=== PATIENT | female | born 1965 | race Caucasian/White ===

== ENCOUNTER 2025-06-24 13:33 | Inpatient (IN) | payer MEDICAID ==
[~2025-06-24] VITALS: Ht 162.6 cm; Wt 54.4 kg
[2025-06-24 13:34] VITALS: O2SAT 100
[2025-06-24] MEDS: KETOROLAC 15MG/ML VIAL IM ONE (15:16)
[2025-06-24] MEDS: LIDOCAINE HCL 1% 20ML VIAL INL ONE (15:30)
[2025-06-24] MEDS ORDERED: MORPHINE SULFATE 4 MG/ML INJ (FOR IV/IM USE) IV ONE (17:00)
[2025-06-24 17:25] LABS: BASOPHILS % 0.8 % (0.0-2.0); EOSINOPHILS % 2.6 % (0.0-5.0); HEMATOCRIT. 36.8 % (36.0-48.0); HEMOGLOBIN. 12.4 g/dL (12.0-16.0); LYMPHOCYTES % 41.3 % (20.0-50.0); MEAN PLATELET VOLUME 8.7 fl (7.4-10.4); MONOCYTES % 11.8 % (2.0-8.0); NEUTROPHILS % 43.5 % (40.0-76.0); PLATELET 238 x1000/uL (130-400); RED BLOOD CELL COUNT 4.12 mill/uL (4.2-5.4); RED CELL DISTRIBUTION WIDTH 13.0 % (11.6-14.6)
[2025-06-24 17:39] LABS: CREATININE 0.6 mg/dL (0.6-1.0); UREA NITROGEN BLOOD 9 mg/dL (9-23)
[2025-06-24 17:41] LABS: ASPARTATE AMINOTRANSFERASE 82 IU/L (<34); BILIRUBIN DIRECT 0.5 mg/dL (<=3.0); BILIRUBIN TOTAL 1.0 mg/dL (0.1-1.0)
[2025-06-24 17:42] LABS: PROTEIN TOTAL 7.1 g/dL (6.0-8.3)
[2025-06-24] MEDS: ONDANSETRON HCL 4MG/2ML INJ IV ONE (18:56)
[2025-06-24] MEDS: VANCOMYCIN 1G PREMIX 200 ML IV SCH (19:00)
[2025-06-24] MEDS: KETOROLAC 15MG/ML VIAL IV ONE (19:58)
[2025-06-24 22:00] VITALS: BP 129/74; PULSE 62; RESP 18; TEMP 36.4736
[2025-06-25] VITALS: BP 119/75; PULSE 64; RESP 17; TEMP 36.4; O2SAT 100
[2025-06-25 04:00] VITALS: BP 121/68; PULSE 60; RESP 18; TEMP 36.6; O2SAT 100
[2025-06-25] MEDS: HYDROCODONE/ACETAMINOPHEN 5/325MG TABLET PO PRN (05:11)
[2025-06-25] MEDS: VANCOMYCIN 750MG/150ML (BAXTER) IV SCH (05:19)
[2025-06-25 08:00] VITALS: BP 97/58; PULSE 61; RESP 16; TEMP 36.5; O2SAT 97
[2025-06-25] MEDS ORDERED: NALOXONE HCL 0.4MG/ML VIAL IV PRN (08:15)
[2025-06-25] MEDS ORDERED: ONDANSETRON HCL 4MG/2ML INJ IV PRN (08:45)
[2025-06-25] MEDS ORDERED: ACETAMINOPHEN 325MG TABLET PO PRN (08:45)
[2025-06-25] MEDS ORDERED: PANTOPRAZOLE SODIUM 40 MG/VIAL IV SCH (09:00)
[2025-06-25 12:00] VITALS: BP 125/81; PULSE 65; RESP 16; TEMP 36.4; O2SAT 97
[2025-06-25] MEDS ORDERED: ARIPIPRAZOLE 2MG TABLET PO SCH (18:00)
[2025-06-25] MEDS ORDERED: VANCOMYCIN 750MG/150ML (BAXTER) IV SCH (21:00)
== END 2025-06-25 13:35 | disposition left against medical advice (07) | DRG 197 ==
LOC: ER 13:33 → 7EST 20:03 → EDBEDREQ 20:14 → ENRESERV 20:31
PROVIDERS: ADMIT Internal Medicine; ATTEND Internal Medicine
PROC: 3E0U3BZ Introduction of Anesthetic Agent into Joints, Percutaneous Approach (ICD-10-PCS; principal; 2025-06-24)
DX: I96 Gangrene, not elsewhere classified (principal); L89.899 Pressure ulcer of other site, unspecified stage; L03.011 Cellulitis of right finger; F20.9 Schizophrenia, unspecified; F31.9 Bipolar disorder, unspecified; Z53.29 Procedure and treatment not carried out because of patient's decision for other reasons; Z79.899 Other long term (current) drug therapy; Z88.8 Allergy status to other drugs, medicaments and biological substances
CPT/HCPCS: 36415; 73130; 80048; 80076; 82962; 85025; 93005; 99285; A4606; J1885; J2003; J3373

== ENCOUNTER 2025-09-07 08:29 | Emergency (ER) | payer MEDICAID ==
[~2025-09-07] VITALS: Ht 162.6 cm; Wt 57.0 kg
[~2025-09-07 08:29] MED LIST: METH-819 PO
[2025-09-07 08:31] VITALS: O2SAT 95
[2025-09-07] MEDS ORDERED: SODIUM CHLORIDE 0.9% 1,000 ML IV ONE (09:00)
[2025-09-07 09:10] VITALS: BP 127/101; PULSE 90; RESP 16; TEMP 36.9; O2SAT 99
== END 2025-09-07 09:34 | disposition left against medical advice (07) ==
LOC: ER 08:29 → CMPBEDREQ 10:45
DX: R55 Syncope and collapse (principal); R42 Dizziness and giddiness; F11.20 Opioid dependence, uncomplicated; F31.9 Bipolar disorder, unspecified; I10 Essential (primary) hypertension; I45.4 Nonspecific intraventricular block; Z53.29 Procedure and treatment not carried out because of patient's decision for other reasons
CPT/HCPCS: 99283; 93005; J7030